=== PATIENT | male | born 1975 | race Caucasian/White ===

== ENCOUNTER 2021-04-21 17:08 | Emergency (ER) | payer MEDICAID ==
[~2021-04-21] VITALS: Ht 180.3 cm; Wt 72.6 kg
--- NOTE | 2021-04-21 17:21 | NUR ---
CALLED TO TRIAGE,NO ANSWER
[2021-04-21 17:56] VITALS: BP 146/101
[2021-04-21] MEDS ORDERED: IBUP-1955 PO (18:43)
--- NOTE | 2021-04-21 19:40 | NUR ---
Patient discharged to home in stable condition. Written and verbal after care instructions given. Patient verbalizes understanding of instruction.
--- NOTE | 2021-04-21 19:40 | NUR ---
Patient ambulatory with a steady gait
== END 2021-04-21 19:42 | disposition home or self-care (01) ==
LOC: ER 17:13
DX: M79.632 Pain in left forearm (principal); F17.200 Nicotine dependence, unspecified, uncomplicated
CPT/HCPCS: 73090-TC